=== PATIENT | female | born 1985 | race African-American/Black ===

== ENCOUNTER 2016-10-11 16:48 | Emergency (ER) | payer SELFPAY | END 2016-10-11 19:00 | disposition left against medical advice (07) | LOC: D.ER 16:48 | DX: R10.9 Unspecified abdominal pain (principal) ==

== ENCOUNTER 2016-10-26 22:44 | Emergency (ER) | payer SELFPAY ==
[2016-10-26 23:37] LABS: BASOPHILS 0.5 % (0.0-2.0); EOSINOPHILS 2.7 % (0-7); HEMATOCRIT 39.8 % (36.0-48.0); HEMOGLOBIN 13.9 g/dL (12-16); IMMATURE GRANULOCYTES 0.2 % (0-5); LYMPHOCYTES 44.5 % (15-50); MCHC 34.9 g/dL (31.0-37.0); MCV 91.5 fL (80.0-100.0); MEAN PLATELET VOLUME 8.5 fL (7.4-10.4); MONOCYTES 8.2 % (2-11); NEUTROPHILS 43.9 % (40-80); PLATELET COUNT 305 10x3/uL (130-400); RBC 4.35 10x6/uL (4.00-5.40); RDW 12.8 % (11.5-14.5); WBC 6.6 10x3/uL (4.8-10.8)
[2016-10-26 23:45] LABS: APPEARANCE TURBID (CLEAR); BILIRUBIN NEGATIVE (NEGATIVE); COLOR YELLOW (YELLOW); GLUCOSE NEGATIVE (NEGATIVE); KETONE NEGATIVE (NEGATIVE); LEUKOCYTE ESTERASE 2+ (NEGATIVE); NITRITE POSITIVE (NEGATIVE); PROTEIN TRACE mg/dL (NEGATIVE); UROBILINOGEN NORMAL (NORMAL)
[2016-10-26 23:50] LABS: BACTERIA MANY /hpf (NONE SEEN); MUCUS >1+ /lpf (NONE SEEN); WHITE CELLS - URINE >50 /hpf (0-5)
[2016-10-26 23:51] LABS: GRANULAR CAST RARE /lpf (NONE SEEN); HYALINE CAST OCC /lpf (NONE SEEN)
[2016-10-26 23:53] LABS: HCG SERUM NEGATIVE (NEGATIVE)
[2016-10-26 23:55] LABS: BILIRUBIN - TOTAL 0.33 mg/dL (0.2-1.3); CALCIUM 8.7 mg/dL (8.5-10.1); CARBON DIOXIDE 26.7 mmol/L (21.0-32.0); CREATININE - SERUM 1.1 mg/dL (0.6-1.3); POTASSIUM - SERUM 3.7 mmol/L (3.5-5.1); PROTEIN - SERUM 7.8 g/dL (6.4-8.2)
== END 2016-10-27 01:18 | disposition home or self-care (01) ==
LOC: D.ER 22:44
PROVIDERS: Family Medicine
DX: N39.0 Urinary tract infection, site not specified (principal)

== ENCOUNTER 2017-02-26 16:16 | Emergency (ER) | payer SELFPAY | END 2017-02-26 17:37 | disposition home or self-care (01) | LOC: D.ER 16:16 | DX: S16.1XXA Strain of muscle, fascia and tendon at neck level, initial encounter (principal); V49.9XXA Car occupant (driver) (passenger) injured in unspecified traffic accident, initial encounter; Y93.89 Activity, other specified; Y92.89 Other specified places as the place of occurrence of the external cause; S29.012A Strain of muscle and tendon of back wall of thorax, initial encounter ==

== ENCOUNTER 2017-03-10 09:17 | Emergency (ER) | payer SELFPAY | END 2017-03-10 10:54 | disposition home or self-care (01) | LOC: D.ER 09:17 | DX: M54.5 Low back pain (principal); F17.200 Nicotine dependence, unspecified, uncomplicated ==

== ENCOUNTER 2017-06-03 01:33 | Emergency (ER) | payer MEDICAID, SELFPAY | END 2017-06-03 02:55 | disposition home or self-care (01) | LOC: D.ER 01:33 | DX: K52.9 Noninfective gastroenteritis and colitis, unspecified (principal); R10.9 Unspecified abdominal pain; F17.200 Nicotine dependence, unspecified, uncomplicated ==